=== PATIENT | male | born 1985 | race Caucasian/White ===

== ENCOUNTER 2021-12-25 08:08 | Outpatient (REF) | payer BC, MEDICAID, SELFPAY ==
[2021-12-25 09:44] LABS: Binax Internal Control QC Valid; Binax Now Covid-19 Ag Negative (Negative)
== END 2021-12-25 08:09 | disposition home or self-care (01) ==
LOC: HO.LAB 08:08
PROVIDERS: Visit Provider Internal Medicine
DX: Z20.822 Contact with and (suspected) exposure to COVID-19 (principal)
CPT/HCPCS: C9803

== ENCOUNTER 2022-04-10 11:30 | Emergency (ER) | payer BC, MEDICAID, SELFPAY ==
--- NOTE | 2022-04-10 | ECG_ITS ---
Test Reason : NUMBNESS Blood Pressure : / mmHG Vent. Rate : 092 BPM Atrial Rate : 092 BPM P-R Int : 172 ms QRS Dur : 086 ms QT Int : 342 ms P-R-T Axes : 032 006 014 degrees QTc Int : 422 ms Normal sinus rhythm Normal ECG No previous ECGs available Referred By: Generic ED Physician Electronically Signed By:SYED OSMAN MD
--- NOTE | ~2022-04-10 | CT_ITS ---
EXAMINATION: CT HEAD WITHOUT CONTRAST CLINICAL INFORMATION: Left leg numbness COMPARISON: None TECHNIQUE: Contiguous axial imaging was performed from the skull base to vertex without intravenous administration of contrast. This CT examination was performed using dose optimization techniques as appropriate, variously including the following: *Automated exposure control *Adjustment of mA and/or kV according to patient size (this includes techniques or standardized protocols for targeted exams where dose is matched to indication/reason for exam; i.e. extremities or head) *Use of iterative reconstruction technique DLP: 805 mGy-cm FINDINGS: There is no evidence of acute intracranial hemorrhage or territorial infarction. No abnormal mass effect or midline shift is seen. Fuentes to white matter differentiation is well preserved. No extra-axial fluid collections are identified. The ventricles are normal in size. There is no abnormal attenuation within the brain parenchyma. The osseous structures and soft tissues are normal. The mastoid air cells and visualized portions of the paranasal sinuses are well aerated. Partially visualized periodontal disease of the left maxillary teeth. CT/CT head/brain wo con IMPRESSION: No acute intracranial pathology.
--- NOTE | ~2022-04-10 | CT_ITS ---
EXAMINATION: CT LUMBAR SPINE WITHOUT CONTRAST CLINICAL INFORMATION: Back pain and leg weakness. COMPARISON: X-ray dated 04/10/2022. TECHNIQUE: Multidetector helical imaging acquired in the axial plane with generation of reformatted acquisitions. This CT examination was performed using dose optimization techniques as appropriate, variously including the following: *Automated exposure control. *Adjustment of mA and/or kV according to patient size (this includes techniques or standardized protocols for targeted exams where dose is matched to indication/reason for exam; i.e. extremities or head). *Use of iterative reconstruction technique. DLP: 547 mGy-cm FINDINGS: There are small endplate Schmorl's nodes at various levels. No compression fractures or subluxations are seen. No lytic or blastic osseous lesions are identified. There is [id number]-kv-hnbqydse facet arthropathy in the lower lumbar spine, more so at the L4-L5 level. No pars defects visible. The central canal is patent. Mild disc bulge is evident at the L4-L5 and L5-S1 levels which also contribute to [id number] foraminal encroachment at the L4-L5 level and milder foraminal encroachment at the L5-S1 level. The remaining disc spaces are normal. There are mild degenerative changes of the sacroiliac joints with vacuum phenomenon. The paraspinal soft tissues appear normal. Punctate non-obstructing calculi within both kidneys. CT/CT lumbar spine wo con IMPRESSION: 1. Small degenerative endplate Schmorl's nodes at various levels, including the superior endplate of S1. 2. Lower lumbar facet arthropathy and mild disc bulges with foraminal encroachment. No focal disc protrusion or central canal stenosis. No acute findings. 3. Small non-obstructing renal calculi bilaterally, more so on the right side.
--- NOTE | ~2022-04-10 | MR_ITS ---
EXAMINATION: MR LUMBAR SPINE WITHOUT AND WITH CONTRAST CLINICAL INFORMATION: Left leg weakness. COMPARISON: CT from 04/10/2022. TECHNIQUE: MRI of the lumbar spine was obtained using routine sequences with and without contrast. Intravenous contrast: Gadavist 10 mL FINDINGS: The marrow signal is homogeneous. Small endplate Schmorl's nodes present at various levels. The distal cord, conus tip, and cauda equina nerve roots appear normal. There is no pathologic intradural enhancement on postcontrast imaging. No disc protrusions evident. Mild to moderate lower lumbar facet arthropathy noted. There is mild bilateral foraminal narrowing at the L4-L5 level. The remaining neural foramina are patent. The paraspinal soft tissues appear normal. MR/MR lumbar spine wo/w con IMPRESSION: Small degenerative endplate Schmorl's nodes. No focal disc protrusion. Mild to moderate lower lumbar facet arthropathy with mild foraminal narrowing at the L4-L5 level. No central canal stenosis. No abnormal enhancement.
--- NOTE | ~2022-04-10 | XR_ITS ---
EXAMINATION: XR LUMBOSACRAL SPINE CLINICAL INFORMATION: Left leg numbness COMPARISON: None TECHNIQUE: Three views of the lumbosacral spine. FINDINGS: The vertebral bodies and posterior elements are normal. The disc spaces are preserved and the vertebral alignment is normal. The paraspinal soft tissues are normal. The L5-S1 spot view is slightly oblique, resulting in a narrowed appearance of the L5-S1 neural foramen. On the lateral radiograph there is a 5 x 2 mm lucent structure associated with the superior endplate of S1 of uncertain, though doubtful, clinical significance. Could relate to a tiny Schmorl's node deformity. XR/XR lumbar spine 2-3V IMPRESSION: No acute abnormality of the lumbar spine. There is a likely projectional appearance of neural foraminal narrowing at L5-S1. 5 x 2 mm lucency along the superior endplate of S1, could relate to a small Schmorl's node deformity or other process. Further characterization with cross-sectional imaging could be considered if clinically warranted.
[2022-04-10 11:40] VITALS: BP 138/89; PULSE 88; RESP 18; TEMP 36.4; O2SAT 98; BMI 32.3
[2022-04-10 12:03] LABS: MANUAL DIFF FLAG NO
[2022-04-10 12:04] LABS: Basophils Absolute Auto 0.1 X10*3/uL (0.0-0.2); Basophils Percent Auto 1.4 % (0-2); Eosinophils Percent Auto 0.3 % (0-4); Hematocrit 35.9 % (42.0-52.0); Hemoglobin 11.5 g/dl (14.0-18.0); Imm Gran Abs Auto 0.01 X10*3/uL (0.00-0.03); Imm Gran Pct Auto 0.2 % (0.0-0.4); Lymphocytes Absolute Auto 1.2 X10*3/uL (1.2-4.9); Lymphocytes Percent Auto 20.1 % (20-40); Mean Corpuscular Hemoglobin 31.4 pg (27.0-33.0); Mean Corpuscular Volume 98.1 fL (80.0-98.0); Mean Platelet Volume 9.7 fL (9.4-12.4); Monocytes Absolute Auto 0.3 X10*3/uL (0.1-1.2); Monocytes Percent Auto 5.6 % (2-11); Neutrophils Absolute Auto 4.2 x10*3/uL (2.0-8.3); Neutrophils Percent Auto 72.4 % (45-73); Platelet Count 163 X10*3/uL (160-400); Red Blood Count 3.66 X10*6/uL (4.60-5.80); Red Cell Distribution Width 17.7 % (11.0-16.0); White Blood Count 5.8 X10*3/uL (4.8-10.8)
[2022-04-10 12:28] LABS: COVID-19 Test Negative (Negative); IDNOW Serial# 9DB6401D
[2022-04-10 12:31] LABS: Anion Gap 19 (12-20); Blood Urea Nitrogen 14 mg/dL (9-16); Calcium 8.4 mg/dL (8.4-10.2); Carbon Dioxide 17 mmol/L (22-29); Chloride 110 mmol/L (96-108); Creatinine Clr Calc Pharmacy 141.7; Estimated Glomerular Filt Rate > 60; Glucose Random 90 mg/dL (60-115); Potassium 3.8 mmol/L (3.3-5.1); Sodium 142 mmol/L (135-145)
--- NOTE | 2022-04-10 14:31 | ED.NEUROSD ---
HPI - Neuro Symptoms/Deficit General Chief Complaint: Neuro Symptoms/Deficit <Anil Orta MD - Last Filed: 04/10/22 16:23> Stated Complaint: L side numbness <Anil Orta MD - Last Filed: 04/10/22 16:23> Time Seen by Provider: 04/10/22 14:31 <Anil Orta MD - Last Filed: 04/10/22 16:23> Source: patient <Anil Orta MD - Last Filed: 04/10/22 16:23> Mode of arrival: ambulatory <Anil Orta MD - Last Filed: 04/10/22 16:23> Limitations: no limitations <Anil Orta MD - Last Filed: 04/10/22 16:23> History of Present Illness HPI Narrative: Patient numbness in left leg, patient states that he has pain in the back. Patient states that the entire leg is numb, no numbness in left arm. Patient has a significant history of anxiety. <Anil Orta MD - Last Filed: 04/10/22 16:23> Onset (ago): hour(s) <Anil Orta MD - Last Filed: 04/10/22 16:23> Location: left leg <Anil Orta MD - Last Filed: 04/10/22 16:23> Severity: mild <Anil Orta MD - Last Filed: 04/10/22 16:23> Quality: numb <Anil Orta MD - Last Filed: 04/10/22 16:23> Associated symptoms: denies other symptoms <Anil Orta MD - Last Filed: 04/10/22 16:23> Related Data Home Medications: Home Medications Medication Instructions Recorded Confirmed bupropion HCl 150 mg 24 hr tablet, 1 tab PO DAILY 04/10/22 04/10/22 extended release citalopram 40 mg tablet 1 tab PO BEDTIME 04/10/22 04/10/22 <Anil Orta MD - Last Filed: 04/10/22 16:23> Allergies/Adverse Reactions: Allergies Allergy/AdvReac Type Severity Reaction Status Date / Time Penicillins [PENICILLINS] Allergy Unknown UNKNOWN Unverified 08/18/20 19:11 <Anil Orta MD - Last Filed: 04/10/22 16:23> Review of Systems Constitutional: Constitutional: Reports no additional constitutional complaints <Anil Orta MD - Last Filed: 04/10/22 16:23> Eyes: Eyes: Reports no additional eye complaints <Anil Orta MD - Last Filed: 04/10/22 16:23> ENT: Denies dizziness <Anil Orta MD - Last Filed: 04/10/22 16:23> Cardiovascular: Cardiovascular: Reports no additional cardiovascular complaints <Anil Orta MD - Last Filed: 04/10/22 16:23> Respiratory: Respiratory: Reports as per HPI <Anil Orta MD - Last Filed: 04/10/22 16:23> Gastrointestinal: Gastrointestinal: Reports no additional gastrointestinal complaints <Anil Orta MD - Last Filed: 04/10/22 16:23> Musculoskeletal: Musculoskeletal: Reports no additional musculoskeletal complaints <Anil Orta MD - Last Filed: 04/10/22 16:23> Integumentary/Breasts: Skin/Breast: Denies rash <Anil Orta MD - Last Filed: 04/10/22 16:23> Neurologic: Reports system reviewed and no additional complaints, except as documented, Denies dizziness and Denies Sensory deficit (Neuro) <Anil Orta MD - Last Filed: 04/10/22 16:23> Psychiatric: Psychiatric: Denies anxiety <Anil Orta MD - Last Filed: 04/10/22 16:23> [facility] Past Medical History Medical History: Medical History Anxiety HTN (hypertension) <Anil Orta MD - Last Filed: 04/10/22 16:23> Social History Social History: Social History Advance Directives: No Advance Directives Information Provided: No <Anil Orta MD - Last Filed: 04/10/22 16:23> Physical Exam Vital Signs: Vital Signs: Last Vital Signs Temp 98.3 F 04/10/22 21:15 Pulse 84 04/10/22 21:15 Resp 18 04/10/22 21:15 BP 149/93 H 04/10/22 21:15 Pulse Ox 99 04/10/22 21:15 BMI result Body Mass Index 32.3 <Anil Orta MD - Last Filed: 04/10/22 16:23> Vital Signs: Last Vital Signs Temp 98.3 F 04/10/22 21:15 Pulse 84 04/10/22 21:15 Resp 18 04/10/22 21:15 BP 149/93 H 04/10/22 21:15 Pulse Ox 99 04/10/22 21:15 BMI result Body Mass Index 32.3 <Armond Serna MD - Last Filed: 04/10/22 22:26> Neuro: Sensory Exam: No Sensory deficit (Neuro) <Anil Orta MD - Last Filed: 04/10/22 16:23> Course Reevaluation(s) Reevaluation #1: I do not believe this is a stroke, patient able to move his leg intermittently and he has a lot of sciatica on physical exam and palpation. There is a lucency on xray, so I will get a CT. Ultimately I believe he will go home on NSAIDS. There may be an anxiety as well as conversion disorder component. Will sign patient out to Dr. Harrison <Anil Orta MD - Last Filed: 04/10/22 16:23> Time: 16:21 <Anil Orta MD - Last Filed: 04/10/22 16:23> MDM - Neuro Symptoms/Deficit MDM Narrative Medical decision making narrative: 18:45 PM patient seen and evaluated 2 years old male with history of anxiety in a good mood load woke up about 06:00 non to notice his left leg is weak feel numb and weak unable to ambulate because of weakness initially felt weak both legs when he went to bed but when he woke up in the morning only left leg was weaker. Patient denied any headache no back problems have had similar episode in the past patient had anxiety attacks before in the past but never had this kind of weakness and he feels his mood is stable at this time on examination patient had left leg weakness unable to lift her leg up dependent atelectasis a normal Babinski negative tone is normal decreased sensation to light touch and pinprick and the cold unable to find the level of weakness. Patient had CT scan of the head which was negative when asked the patient to rest the left leg down on the hand did not notice much difference on the right leg. Lumbar spine CT is negative for any acute patient had no bowel movement and able to hold the stool no loss of sexual sensations. Clinically patient has strange weakness of left leg possible could be conversion disorder but even during stay in the ER for 8 hours patient did not move his legs no improvement case discussed Dr. Bradford neurologist advised to do a for Spine and admit patient better unless patient gets completely better 21:40 MRI report negative for any acute spinal cord lesion patient started moving his left leg now made him sit able to dangle his leg and able to ambulate to bathroom and came back although sensation are back to normal patient on stand on his left leg. Likely patient has conversion disorder secondary to panic attack which happened yesterday will discharge patient home <Armond Serna MD - Last Filed: 04/10/22 22:26> Lab Data Attestation: I reviewed the patient's lab results. <Armond Serna MD - Last Filed: 04/10/22 22:26> Result diagrams: : 04/10/22 11:55 04/10/22 11:55 <Anil Orta MD - Last Filed: 04/10/22 16:23> Labs: Lab Results 04/10/22 04/10/22 04/10/22 Range/Units 11:55 11:55 11:55 WBC 5.8 (4.8-10.8) X10*3/uL RBC 3.66 L (4.60-5.80) X10*6/uL Hgb 11.5 L (14.0-18.0) g/dl Hct 35.9 L (42.0-52.0) % MCV 98.1 H (80.0-98.0) fL MCH 31.4 (27.0-33.0) pg MCHC 32.0 (31.0-36.0) g/dl RDW 17.7 H (11.0-16.0) % Plt Count 163 (160-400) X10*3/uL MPV 9.7 (9.4-12.4) fL Immature Gran % (Auto) 0.2 (0.0-0.4) % Neut % (Auto) 72.4 (45-73) % Lymph % (Auto) 20.1 (20-40) % [place] % (Auto) 5.6 (2-11) % Eos % (Auto) 0.3 (0-4) % Baso % (Auto) 1.4 (0-2) % Lymph # (Auto) 1.2 (1.2-4.9) X10*3/uL [place] # (Auto) 0.3 (0.1-1.2) X10*3/uL Eos # (Auto) 0.0 (0.0-0.4) X10*3/uL Baso # (Auto) 0.1 (0.0-0.2) X10*3/uL Abs Immat Gran (auto) 0.01 (0.00-0.03) X10*3/uL Absolute Neuts (auto) 4.2 (2.0-8.3) x10*3/uL Absolute Nucleated RBC 0.000 (0.0-0.012) X10*3/uL Nucleated RBC % (auto) 0.0 (0.0-0.2) /100WBC ESR (0-15) MM/HR Sodium 142 (135-145) mmol/L Potassium 3.8 (3.3-5.1) mmol/L Chloride 110 H (96-108) mmol/L Carbon Dioxide 17 L (22-29) mmol/L Anion Gap 19 (12-20) BUN 14 (9-16) mg/dL Creatinine 0.76 (0.5-1.4) mg/dL Estim Creat Clear Calc 141.7 Estimated GFR > 60 Random Glucose 90 (60-115) mg/dL Calcium 8.4 (8.4-10.2) mg/dL Urine Color Urine Appearance Urine pH (5.0-8.0) Ur Specific [place] (1.005-1.025) Urine Protein (NEG-TRACE) MG/DL Urine Glucose (UA) (NEG) MG/DL Urine Ketones (NEG) MG/DL Urine Blood (NEG) Urine Nitrite (NEG) Ur Leukocyte Esterase (NEG) Urine RBC (0) /HPF Urine WBC (0-4) /HPF Ur Squamous Epith Cells /LPF Ur Renal Epithelial Cell /LPF Urine Bacteria /LPF Urine Mucus /LPF Urine Opiates Screen (Not Detect) Urine Fentanyl Screen (Not Detect) Ur Barbiturates Screen (Not Detect) Ur Phencyclidine Scrn (Not Detect) Ur Amphetamines Screen (Not Detect) U Benzodiazepines Scrn (Not Detect) Urine Cocaine Screen (Not Detect) U Marijuana (THC) Screen (Not Detect) COVID-19 (MAJO) Negative (Negative) COVID-19 Clin Com See Note 04/10/22 04/10/22 04/10/22 Range/Units 16:31 16:31 16:37 WBC (4.8-10.8) X10*3/uL RBC (4.60-5.80) X10*6/uL Hgb (14.0-18.0) g/dl Hct (42.0-52.0) % MCV (80.0-98.0) fL MCH (27.0-33.0) pg MCHC (31.0-36.0) g/dl RDW (11.0-16.0) % Plt Count (160-400) X10*3/uL MPV (9.4-12.4) fL Immature Gran % (Auto) (0.0-0.4) % Neut % (Auto) (45-73) % Lymph % (Auto) (20-40) % [place] % (Auto) (2-11) % Eos % (Auto) (0-4) % Baso % (Auto) (0-2) % Lymph # (Auto) (1.2-4.9) X10*3/uL [place] # (Auto) (0.1-1.2) X10*3/uL Eos # (Auto) (0.0-0.4) X10*3/uL Baso # (Auto) (0.0-0.2) X10*3/uL Abs Immat Gran (auto) (0.00-0.03) X10*3/uL Absolute Neuts (auto) (2.0-8.3) x10*3/uL Absolute Nucleated RBC (0.0-0.012) X10*3/uL Nucleated RBC % (auto) (0.0-0.2) /100WBC ESR 6 (0-15) MM/HR Sodium (135-145) mmol/L Potassium (3.3-5.1) mmol/L Chloride (96-108) mmol/L Carbon Dioxide (22-29) mmol/L Anion Gap (12-20) BUN (9-16) mg/dL Creatinine (0.5-1.4) mg/dL Estim Creat Clear Calc Estimated GFR Random Glucose (60-115) mg/dL Calcium (8.4-10.2) mg/dL Urine Color YELLOW Urine Appearance CLEAR Urine pH 6.0 (5.0-8.0) Ur Specific [place] 1.025 (1.005-1.025) Urine Protein 2+ H (NEG-TRACE) MG/DL Urine Glucose (UA) NEG (NEG) MG/DL Urine Ketones 5 (NEG) MG/DL Urine Blood NEG (NEG) Urine Nitrite NEG (NEG) Ur Leukocyte Esterase NEG (NEG) Urine RBC 0-2 (0) /HPF Urine WBC 0 (0-4) /HPF Ur Squamous Epith Cells TRACE /LPF Ur Renal Epithelial Cell 1+ /LPF Urine Bacteria NONE /LPF Urine Mucus 4+ /LPF Urine Opiates Screen Not Detected (Not Detect) Urine Fentanyl Screen Not Detected (Not Detect) Ur Barbiturates Screen Not Detected (Not Detect) Ur Phencyclidine Scrn Not Detected (Not Detect) Ur Amphetamines Screen Not Detected (Not Detect) U Benzodiazepines Scrn Not Detected (Not Detect) Urine Cocaine Screen Not Detected (Not Detect) U Marijuana (THC) Screen Not Detected (Not Detect) COVID-19 ([facility]JO) (Negative) COVID-19 Clin Com <Anil Orta MD - Last Filed: 04/10/22 16:23> Lab Results 04/10/22 04/10/22 04/10/22 Range/Units 11:55 11:55 11:55 WBC 5.8 (4.8-10.8) X10*3/uL RBC 3.66 L (4.60-5.80) X10*6/uL Hgb 11.5 L (14.0-18.0) g/dl Hct 35.9 L (42.0-52.0) % MCV 98.1 H (80.0-98.0) fL MCH 31.4 (27.0-33.0) pg MCHC 32.0 (31.0-36.0) g/dl RDW 17.7 H (11.0-16.0) % Plt Count 163 (160-400) X10*3/uL MPV 9.7 (9.4-12.4) fL Immature Gran % (Auto) 0.2 (0.0-0.4) % Neut % (Auto) 72.4 (45-73) % Lymph % (Auto) 20.1 (20-40) % [place] % (Auto) 5.6 (2-11) % Eos % (Auto) 0.3 (0-4) % Baso % (Auto) 1.4 (0-2) % Lymph # (Auto) 1.2 (1.2-4.9) X10*3/uL [place] # (Auto) 0.3 (0.1-1.2) X10*3/uL Eos # (Auto) 0.0 (0.0-0.4) X10*3/uL Baso # (Auto) 0.1 (0.0-0.2) X10*3/uL Abs Immat Gran (auto) 0.01 (0.00-0.03) X10*3/uL Absolute Neuts (auto) 4.2 (2.0-8.3) x10*3/uL Absolute Nucleated RBC 0.000 (0.0-0.012) X10*3/uL Nucleated RBC % (auto) 0.0 (0.0-0.2) /100WBC ESR (0-15) MM/HR Sodium 142 (135-145) mmol/L Potassium 3.8 (3.3-5.1) mmol/L Chloride 110 H (96-108) mmol/L Carbon Dioxide 17 L (22-29) mmol/L Anion Gap 19 (12-20) BUN 14 (9-16) mg/dL Creatinine 0.76 (0.5-1.4) mg/dL Estim Creat Clear Calc 141.7 Estimated GFR > 60 Random Glucose 90 (60-115) mg/dL Calcium 8.4 (8.4-10.2) mg/dL Urine Color Urine Appearance Urine pH (5.0-8.0) Ur Specific [place] (1.005-1.025) Urine Protein (NEG-TRACE) MG/DL Urine Glucose (UA) (NEG) MG/DL Urine Ketones (NEG) MG/DL Urine Blood (NEG) Urine Nitrite (NEG) Ur Leukocyte Esterase (NEG) Urine RBC (0) /HPF Urine WBC (0-4) /HPF Ur Squamous Epith Cells /LPF Ur Renal Epithelial Cell /LPF Urine Bacteria /LPF Urine Mucus /LPF Urine Opiates Screen (Not Detect) Urine Fentanyl Screen (Not Detect) Ur Barbiturates Screen (Not Detect) Ur Phencyclidine Scrn (Not Detect) Ur Amphetamines Screen (Not Detect) U Benzodiazepines Scrn (Not Detect) Urine Cocaine Screen (Not Detect) U Marijuana (THC) Screen (Not Detect) COVID-19 (MAJO) Negative (Negative) COVID-19 Clin Com See Note 04/10/22 04/10/22 04/10/22 Range/Units 16:31 16:31 16:37 WBC (4.8-10.8) X10*3/uL RBC (4.60-5.80) X10*6/uL Hgb (14.0-18.0) g/dl Hct (42.0-52.0) % MCV (80.0-98.0) fL MCH (27.0-33.0) pg MCHC (31.0-36.0) g/dl RDW (11.0-16.0) % Plt Count (160-400) X10*3/uL MPV (9.4-12.4) fL Immature Gran % (Auto) (0.0-0.4) % Neut % (Auto) (45-73) % Lymph % (Auto) (20-40) % [place] % (Auto) (2-11) % Eos % (Auto) (0-4) % Baso % (Auto) (0-2) % Lymph # (Auto) (1.2-4.9) X10*3/uL [place] # (Auto) (0.1-1.2) X10*3/uL Eos # (Auto) (0.0-0.4) X10*3/uL Baso # (Auto) (0.0-0.2) X10*3/uL Abs Immat Gran (auto) (0.00-0.03) X10*3/uL Absolute Neuts (auto) (2.0-8.3) x10*3/uL Absolute Nucleated RBC (0.0-0.012) X10*3/uL Nucleated RBC % (auto) (0.0-0.2) /100WBC ESR 6 (0-15) MM/HR Sodium (135-145) mmol/L Potassium (3.3-5.1) mmol/L Chloride (96-108) mmol/L Carbon Dioxide (22-29) mmol/L Anion Gap (12-20) BUN (9-16) mg/dL Creatinine (0.5-1.4) mg/dL Estim Creat Clear Calc Estimated GFR Random Glucose (60-115) mg/dL Calcium (8.4-10.2) mg/dL Urine Color YELLOW Urine Appearance CLEAR Urine pH 6.0 (5.0-8.0) Ur Specific [place] 1.025 (1.005-1.025) Urine Protein 2+ H (NEG-TRACE) MG/DL Urine Glucose (UA) NEG (NEG) MG/DL Urine Ketones 5 (NEG) MG/DL Urine Blood NEG (NEG) Urine Nitrite NEG (NEG) Ur Leukocyte Esterase NEG (NEG) Urine RBC 0-2 (0) /HPF Urine WBC 0 (0-4) /HPF Ur Squamous Epith Cells TRACE /LPF Ur Renal Epithelial Cell 1+ /LPF Urine Bacteria NONE /LPF Urine Mucus 4+ /LPF Urine Opiates Screen Not Detected (Not Detect) Urine Fentanyl Screen Not Detected (Not Detect) Ur Barbiturates Screen Not Detected (Not Detect) Ur Phencyclidine Scrn Not Detected (Not Detect) Ur Amphetamines Screen Not Detected (Not Detect) U Benzodiazepines Scrn Not Detected (Not Detect) Urine Cocaine Screen Not Detected (Not Detect) U Marijuana (THC) Screen Not Detected (Not Detect) COVID-19 ([facility]) (Negative) COVID-19 Clin Com <Armond Serna MD - Last Filed: 04/10/22 22:26> Imaging Data CT scan - head: Radiologist's impression: IMPRESSION: No acute intracranial pathology. <Anil Orta MD - Last Filed: 04/10/22 16:23> lumbar spine: Radiologist's impression: IMPRESSION: No acute abnormality of the lumbar spine. There is a likely projectional appearance of neural foraminal narrowing at L5-S1. 5 x 2 mm lucency along the superior endplate of S1, could relate to a small Schmorl's node deformity or other process. Further characterization with cross-sectional imaging could be considered if clinically warranted. <Anil Orta MD - Last Filed: 04/10/22 16:23> Discharge Plan Discharge Clinical Impression: Transient leg weakness <Anil Orta MD - Last Filed: 04/10/22 16:23> Patient Disposition: Home, Self-Care <Anil Orta MD - Last Filed: 04/10/22 16:23> Instructions: Weakness (ED), Anxiety (ED) <Anil Orta MD - Last Filed: 04/10/22 16:23> Additional Instructions: Taking medication for anxiety as prescribed by PCP Keep moving your left lower extremity to improve circulation <Anil Orta MD - Last Filed: 04/10/22 16:23> Prescriptions: No Action citalopram 40 mg tablet 1 tab PO BEDTIME 0RF bupropion HCl 150 mg tablet extended release 24 hr 1 tab PO DAILY 0RF <Anil Orta MD - Last Filed: 04/10/22 16:23> Stand Alone Forms: Work/School Release <Anil Orta MD - Last Filed: 04/10/22 16:23>
[2022-04-10 14:49] VITALS: BP 136/91; PULSE 86; RESP 18; TEMP 36.4; O2SAT 100
[2022-04-10 16:46] LABS: Appearance Urine CLEAR; Color Urine YELLOW; Glucose Urine UA NEG (NEG); Leukocyte Esterase Urine NEG (NEG); Nitrite Urine NEG (NEG); Specific Gravity - Urine 1.025 (1.005-1.025); UACC Culture Trigger NO; Urine Blood NEG (NEG); Urine Ketones 5 MG/DL (NEG); Urine Protein 2+ MG/DL (NEG-TRACE)
[2022-04-10 16:59] LABS: Mucus Urine 4+ /LPF; RBC Urine 0-2 /HPF (0); Renal Epithelial Cells Urine 1+ /LPF; Squamous Epithelial Cell Urine TRACE /LPF; WBC Urine 0 /HPF (0-4)
[2022-04-10 17:01] LABS: Amphetamine Screen Urine Not Detected (Not Detect); Barbiturates, Urine Not Detected (Not Detect); Benzodiazepines Screen Urine Not Detected (Not Detect); Cannabinoid Screen Urine Not Detected (Not Detect); Cocaine Screen Urine Not Detected (Not Detect); Fentanyl, urine Not Detected (Not Detect); Opiate Screen Urine Not Detected (Not Detect); Phencyclidine Screen Urine Not Detected (Not Detect)
[2022-04-10 17:36] LABS: Erythrocyte Sedimentation Rate 6 MM/HR (0-15)
[2022-04-10 17:45] VITALS: BP 157/94; PULSE 85; RESP 18; TEMP 36; O2SAT 98
--- NOTE | 2022-04-10 17:45 | PC.NURSE ---
PT ASKING HOW LONG BEFORE WE GET CT REPORT. APPX 1 HOUR FROM TIME TAKEN. PT WAS CONSIDERING LEAVING BEFORE RESULTS BUT HAS DECIDED TO WAIT. PT AWARE CAN NOT EAT UNTIL RESULTS. RESTING ON BED. NO DISTRESS.
[2022-04-10 21:15] VITALS: BP 149/93; PULSE 84; RESP 18; TEMP 36.8; O2SAT 99
--- NOTE | 2022-04-10 21:45 | PC.NURSE ---
PT REEVALED BY DR ESCOBEDO. MRI REVIEWED. PT NOW ABLE TO MOVE LEFT LEG. HAS FEELING AND ABLE TO AMBULATE.
== END 2022-04-10 22:32 | disposition home or self-care (01) ==
PROVIDERS: Emergency Provider Emergency Medicine
DX: R20.0 Anesthesia of skin (principal); M54.50 Low back pain, unspecified; R53.1 Weakness; R51.9 Headache, unspecified; R07.89 Other chest pain; M79.605 Pain in left leg; Z20.822 Contact with and (suspected) exposure to COVID-19; Z79.899 Other long term (current) drug therapy
CPT/HCPCS: 36415; 70450; 72100; 72131; 72158; 80048; 80307; 81001; 85025; 85652; 87635; 93005; 96374; 99284; 99285; A9585